=== PATIENT | male | born 1965 | race Caucasian/White ===

== ENCOUNTER → 2017-10-23 | Day surgery (SDC) | payer SELFPAY ==
[~2017-10-23] VITALS: Ht 170.2 cm; Wt 82.5 kg
[2017-10-23 14:00] LABS: HEMOGLOBIN 15.6 G/DL (12.5-16.6); MCH 29.9 PG (29.0-34.0); MCHC 33.9 G/DL (30.0-36.0); MCV 88.1 FL (86-99); PLATELET COUNT 268 K/uL (156-360); RBC DIS.WIDTH-CV 12.1 % (11.8-14.6); RBC DIS.WIDTH-SD 38.9 % (39-53); RED BLOOD COUNT 5.22 M/uL (4.00-5.50); WHITE BLOOD COUNT 12.7 K/uL (4.1-10.2)
[2017-10-23 14:08] LABS: ALBUMIN 4.9 g/dL (3.2-4.8); CHLORIDE 107 mEq/L (99-109); SODIUM 142 mEq/L (136-147)
[2017-10-23 14:11] LABS: GLUCOSE 90 mg/dL (70-99); TOTAL PROTEIN 8.2 g/dL (6.4-8.3)
[2017-10-23 14:13] LABS: TOTAL BILIRUBIN 1.2 mg/dL (0.0-1.0)
[2017-10-23 14:14] LABS: ALKALINE PHOSPHATASE 82 IU/L (3-129); CREATININE 1.2 mg/dL (0.6-1.3); GFR ESTIMATE (CALCULATED) > 59 mL/min/ (58.99-99999)
[2017-10-23 14:15] LABS: UREA NITROGEN (BUN) 26 mg/dL (9-23)
[2017-10-23 14:16] LABS: AST (GOT) 21 IU/L (2-34)
[2017-10-23 14:17] LABS: ALT (GPT) 24 IU/L (3-49)
[2017-10-23 16:13] VITALS: BP 125/80
== END | disposition home or self-care (01) ==
LOC: EME 12:50 → SDC 16:13 → EME 16:13
PROVIDERS: Nurse Practitioner Family
PROC: 0DC38ZZ Extirpation of Matter from Lower Esophagus, Via Natural or Artificial Opening Endoscopic (ICD-10-PCS; principal; 2017-10-23)
DX: T18.128A Food in esophagus causing other injury, initial encounter (principal); K22.10 Ulcer of esophagus without bleeding
CPT/HCPCS: 70360; 71046; 80053; 85027; 93005; 99281; 99285; J1100; J2405; J3010